=== PATIENT | male | born 1970 | race Caucasian/White ===

== ENCOUNTER → 2016-10-02 | Outpatient (CLI) | payer BC ==
--- NOTE | 2016-10-02 16:18 | MR ---
MRI of the Lumbar Spine (Without Contrast) 1301 hours Clinical Indications: Low back pain. M54.5. Technique: Sagittal and axial T1 and T2 and sagittal STIR MR sequences of the lumbar spine without co ntrast. Axial imaging from T11 through S1. Findings: Lumbar vertebral bodies are of normal height without compression fractures. Conus medullar is appears normal and ends at L2. T11-T12: Mild degenerative disk disease without disk herniation or stenosis. T12-L1: No disk herniation or stenosis. L1-L2: No disk herniation or stenosis. L2-L3: No disk herniation or stenosis. L3-L4: No disk herniation or stenosis. L4-L5: No disk herniation or stenosis. L5-S1: Mild bilateral facet arthropathy without disk herniation or stenosis. Impression: 1. No lumbar compression fractures, disk herniations, central canal stenosis or neural foraminal sten osis. 2. T11-T12 mild degenerative disk disease with mild disk space narrowing. No disk herniation or steno sis. 3. L5-S1 mild bilateral facet arthropathy without disk herniation or stenosis.
== END ==
LOC: FIMAGING 12:39
PROVIDERS: ATTEND Neurological Surgery
DX: M54.5 Low back pain (principal)

== ENCOUNTER → 2017-04-05 | Outpatient (CLI) | payer BC ==
[~2017-04-05] MED LIST: GADOBUTROL 10 ML VIAL IVP ONE
== END ==
LOC: FIMAGING 06:57
PROVIDERS: ATTEND Neurological Surgery
DX: D35.2 Benign neoplasm of pituitary gland (principal)
CPT/HCPCS: A9585